=== PATIENT | male | born 1955 | race Caucasian/White ===

== ENCOUNTER 2020-11-06 13:28 | Outpatient (CLI) | payer MEDICARE, SELFPAY ==
--- NOTE | 2020-11-06 14:15 | USCV_ITS ---
Emerson Abbasi Age: 65 Gender: M : 1955 Exam Date: 11/06/2020 13:34 Ordering Phys: Umberto Wood M.D ([email or web address]) Technologist: Shelby Lazcano [place] [facility] [place]: TAVR BP: 142 / 84 HR: 70 Rhythm: Sinus Technical Quality: Adequate MEASUREMENTS (Male / Female) Normal Values 2D ECHO LV Diastolic Diameter PLAX 5.1 cm 4.2 - 5.9 / 3.9 - 5.3 cm LV Systolic Diameter PLAX 3.6 cm LV Chamber Size 4.4 cm IVS Diastolic Thickness 1.9 cm 0.6 - 1.0 / 0.6 - 0.9 cm IVS Systolic Thickness 2.1 cm LVPW Diastolic Thickness 1.3 cm 0.6 - 1.0 / 0.6 - 0.9 cm LVPW Systolic Thickness 1.9 cm RV Chamber Size 3.6 cm LVOT Diameter 2.0 cm LV Ejection Fraction 2D Teich 54.8 % LV Ejection Fraction MOD 2C 66.7 % LV Ejection Fraction 2C AL 68.2 % LA Diameter 4.2 cm LA Width 3.0 cm LA Height 3.9 cm RA Width 3.3 cm RA Height 4.2 cm Aorta at Sinotubular Diameter 2.9 cm M-MODE LV Diastolic Diameter MM 5.6 cm 4.2 - 5.9 / 3.9 - 5.3 cm LV Systolic Diameter MM 4.2 cm LV Ejection Fraction MM Teich 48.9 % IVS Diastolic Thickness MM 1.3 cm 0.6 - 1.0 / 0.6 - 0.9 cm IVS Systolic Thickness MM 1.3 cm LVPW Diastolic Thickness MM 1.2 cm 0.6 - 1.0 / 0.6 - 0.9 cm LVPW Systolic Thickness MM 2.2 cm RV Diastolic Diameter MM 1.3 cm Aortic Annulus Diameter 3.3 cm LA Ao Ratio MM 1.4 MV E Point Septal Separation 1.1 cm DOPPLER AV Peak Velocity 225.0 cm/s LVOT Peak Velocity 82.0 cm/s AV Area Cont Eq vti 1.3 cm squared AV Area Cont Eq pk 1.2 cm squared MV Area PHT 2.3 cm squared Mitral E to A Ratio 0.7 MV E' Velocity 41.5 cm/s Mitral E to MV E' Ratio 11.6 Mitral E to LV E' Lateral Ratio 9.7 Mitral E to LV E' Septal Ratio 14.8 TR Peak Velocity 153.5 cm/s TR Peak Gradient 9.4 mmHg TR Mean Velocity 107.7 cm/s TR Mean Gradient 5.2 mmHg TR Velocity Time Integral 34.9 cm TV Peak E Velocity 67.0 cm/s Right Atrial Pressure 3.0 mmHg Pulmonary Artery Systolic Pressu 12.4 mmHg PV Peak Velocity 55.0 cm/s RV Acceleration Time 0.1 s RV Ejection Time 0.3 s RV AcT/ET 0.3 FINDINGS Left Ventricle Normal left ventricular size. LV systolic function is borderline normal with EF of 50 to 55%. No regional wall motion abnormalities are seen. Grade 1 diastolic dysfunction is noted. Right Ventricle The right ventricle is normal in size and function. Right Atrium The right atrium is normal in size. Left Atrium The left atrium is normal in size. Mitral Valve Structurally normal mitral valve without significant stenosis or prolapse. There is mild mitral regurgitation. Aortic Valve Aortic valve is not very well seen. This is a TAVR bioprosthetic valve. Mild aortic valve stenosis with a mean gradient of 10 mmHg with aortic valve area of 1.2 cm squared is noted. Tricuspid Valve Structurally normal tricuspid valve without significant stenosis or regurgitation. Insufficient TR jet to evaluate RVSP. Pulmonic Valve Not well-visualized.. There is no pulmonic regurgitation. Pericardium Normal pericardium without effusion. Aorta Normal ascending aorta dimension. CONCLUSIONS LV systolic function is borderline normal with EF 50 to 55%. Grade 1 diastolic dysfunction is noted. Aortic valve is not very well seen however it is a TAVR bioprosthetic valve. Mild aortic valve stenosis is noted with a mean gradient of 10 mmHg and a aortic valve area of 1.2 cm squared. Compared to prior echocardiogram from 10/26/2019, LV systolic function has significant improved now and is borderline normal with EF of 50 to 55%. Umberto Wood MD (Electronically Signed) Final Date: 13 November 2020 19:31 S
== END 2020-11-06 13:29 | disposition home or self-care (01) ==
LOC: US 13:30
PROVIDERS: PCP Nurse Practitioner Family; Visit Provider Internal Medicine
DX: Z95.2 Presence of prosthetic heart valve (principal); I35.0 Nonrheumatic aortic (valve) stenosis
CPT/HCPCS: 93306